=== PATIENT | female | born 1975 | race Two or more races ===

== ENCOUNTER → 2019-01-05 | Outpatient (CLI) | payer OTHER ==
--- NOTE | 2019-01-06 14:57 | RAD ---
EXAM: Pelvic sonogram. HISTORY: growth assessment. TECHNIQUE: Sonographic imaging of a gravid uterus was performed. COMPARISON: 10/13/2018. FINDINGS: There is a single intrauterine fetus in cephalic presentation with a heart rate of 127 bpm. The cervix is obscured. There is a fundal placenta without evidence of placenta previa. The amniotic fluid index is normal at 17.2 cm. The biparietal diameter is 8.32 cm, corresponding with 33 weeks and 3 days. The head circumference is 30.27 cm, corresponding with 33 weeks and 4 days. The abdominal circumference is 29.9 cm, corresponding with 34 weeks and 0 days. The femoral length is 6.72 cm, corresponding with 34 weeks and 0 days. The estimated gestational age patient combined ultrasound measurements is 33 weeks and 6 days and the estimated due date is 02/17/2019. The estimated weight is 2333 g, corresponding with the 46th percentile for an estimated gestational age of 33 weeks and 6 days based on LMP. The anatomy is not formally assessed on this exam. IMPRESSION: Single intrauterine fetus in cephalic presentation with an estimated gestational age based on ultrasound measurements of 33 weeks and 6 days and normal heart rate of 127 bpm. The estimated weight is at the 46th percentile. Electronically signed by: Odalis Melendez MD (01/06/2019 2:53 PM) [place] [id number]
== END | disposition home or self-care (01) ==
LOC: US 16:00
PROVIDERS: ATTEND Obstetrics & Gynecology
DX: O26.843 Uterine size-date discrepancy, third trimester (principal); Z3A.33 33 weeks gestation of pregnancy
CPT/HCPCS: 76805